=== PATIENT | male | born 1940 | race Two or more races ===

== ENCOUNTER 2017-12-12 13:00 | Inpatient (IN) | payer OTHER ==
[~2017-12-12] VITALS: Ht 170.2 cm; Wt 83.9 kg
[2017-12-12] MEDS ORDERED: SODIUM CHLORIDE 0.9% 1,000 ML IV ONE (13:53)
[2017-12-12 14:37] LABS: MEAN CORPUSCULAR HEMOGLOBIN 15.2 pg (28.0-32.0); MEAN CORPUSCULAR VOLUME 55.3 fL (80.0-94.0); MEAN PLATELET VOLUME 8.3 fl (7.4-10.4); PLATELET 418 x1000/uL (130-400); RED CELL DISTRIBUTION WIDTH 21.7 % (11.6-14.6)
[2017-12-12 14:39] LABS: INR 1.1; PROTHROMBIN TIME 10.8 sec (9.1-11.1)
[2017-12-12 14:43] LABS: BASOPHILS % 0.8 % (0.0-2.0); CHLORIDE 102 mEq/L (98-107); EOSINOPHILS % 5.3 % (0.0-5.0); HEMATOCRIT. 25.4 % (42.0-52.0); LYMPHOCYTES % 24.1 % (20.0-50.0); NEUTROPHILS % 61.8 % (40.0-76.0)
[2017-12-12 15:25] LABS: PLATELET ESTIMATE NORMAL
[2017-12-12 16:19] LABS: CLARITY URINE CLEAR (CLEAR); COLOR URINE YELLOW (YELLOW); KETONES URINE NEGATIVE (NEGATIVE); LEUKOCYTE ESTERASE URINE NEGATIVE (NEGATIVE); NITRITE URINE NEGATIVE (NEGATIVE); OCCULT BLOOD URINE NEGATIVE (NEGATIVE); PH URINE 5.5 (4.5-8.0); PROTEIN URINE NEGATIVE (NEGATIVE); UROBILINOGEN URINE 0.2 E.U./dL (0.2-1.0)
[2017-12-12] MEDS ORDERED: ACETAMINOPHEN 325MG TABLET PO PRN (18:00)
[2017-12-12] MEDS ORDERED: ONDANSETRON HCL 4MG/2ML INJ IV PRN (18:00)
[2017-12-12] MEDS ORDERED: DEXTROSE 50% WATER 50ML SYRINGE IV PRN (18:00)
[2017-12-12 20:00] VITALS: BP 197/85
[2017-12-12 20:25] VITALS: BP 140/83
[2017-12-12 21:45] VITALS: BP 140/83
[2017-12-12] MEDS: INSULIN LISPRO 100 UNITS/ML SUBCUT SCH (22:50)
[2017-12-12] MEDS: BLOOD SUGAR DIAGNOSTIC STRIP TEST SCH (22:50)
[2017-12-12] MEDS: LEVETIRACETAM 500MG TABLET PO SCH (22:59)
[2017-12-12 23:20] LABS: *AMPHETAMINES SCREEN URINE NEGATIVE (NEGATIVE); *BARBITURATES SCREEN URINE NEGATIVE (NEGATIVE); *BENZODIAZEPINES SCREEN URINE NEGATIVE (NEGATIVE); *COCAINE SCREEN URINE NEGATIVE (NEGATIVE); METHADONE URINE SCREEN NEGATIVE (NEGATIVE)
[2017-12-12 23:21] LABS: CANNABINOID URINE SCREEN NEGATIVE (NEGATIVE); OPIATES URINE SCREEN NEGATIVE (NEGATIVE); PHENCYCLIDINE URINE SCREEN NEGATIVE (NEGATIVE)
[2017-12-13] VITALS (11 sets, daily range): BP systolic 136–175; BP diastolic 72–91
[2017-12-13] MEDS: CLONIDINE 0.1MG TABLET PO PRN ×2 (01:01→20:24)
[2017-12-13] MEDS: BLOOD SUGAR DIAGNOSTIC STRIP TEST SCH ×4 (06:20→20:24)
[2017-12-13] MEDS: INSULIN LISPRO 100 UNITS/ML SUBCUT SCH ×4 (06:21→20:24)
[2017-12-13 07:27] LABS: HEMATOCRIT 28.2 % (42.0-52.0); HEMOGLOBIN 8.6 g/dL (14.0-18.0); MEAN CORPUSCULAR HEMOGLOBIN 18.3 pg (28.0-32.0); MEAN CORPUSCULAR VOLUME 60.3 fL (80.0-94.0); PLATELET 346 x1000/uL (130-400); RED BLOOD CELL COUNT 4.68 mill/uL (4.7-6.1); RED CELL DISTRIBUTION WIDTH 29.8 % (11.6-14.6)
[2017-12-13 07:40] LABS: CHLORIDE 106 mEq/L (98-107)
[2017-12-13] MEDS: LEVETIRACETAM 500MG TABLET PO SCH ×2 (09:24→20:24)
[2017-12-13] MEDS: FLUDROCORTISONE ACETATE 0.1MG TABLET PO SCH (09:24)
[2017-12-13 17:42] LABS: VITAMIN B12 SERUM 168 pg/mL (211-911)
[2017-12-14] VITALS: BP_SYST 143; BP_SYST 161; BP_SYST 171; BP_DIAS 72; BP_DIAS 82; BP_DIAS 92
[2017-12-14 04:00] VITALS: BP 115/63
[2017-12-14] MEDS: BLOOD SUGAR DIAGNOSTIC STRIP TEST SCH ×4 (05:46→20:20)
[2017-12-14] MEDS: INSULIN LISPRO 100 UNITS/ML SUBCUT SCH ×3 (05:47→20:21)
[2017-12-14 07:54] LABS: HEMATOCRIT 30.5 % (42.0-52.0); HEMOGLOBIN 9.1 g/dL (14.0-18.0); MEAN CORPUSCULAR HEMOGLOBIN 18.1 pg (28.0-32.0); MEAN CORPUSCULAR VOLUME 60.7 fL (80.0-94.0); PLATELET 371 x1000/uL (130-400); RED BLOOD CELL COUNT 5.03 mill/uL (4.7-6.1)
[2017-12-14 08:00] VITALS: BP 147/69
[2017-12-14 09:38] LABS: CHLORIDE 104 mEq/L (98-107)
[2017-12-14] MEDS: FLUDROCORTISONE ACETATE 0.1MG TABLET PO SCH (10:28)
[2017-12-14] MEDS: LEVETIRACETAM 500MG TABLET PO SCH ×2 (10:29→20:16)
[2017-12-14] MEDS: CLONIDINE 0.1MG TABLET PO PRN (10:29)
[2017-12-14 19:03] LABS: TOTAL IRON BINDING CAPACITY 462 ug/dL (250-450)
[2017-12-14 20:00] VITALS: BP_SYST 157; BP_SYST 183; BP_SYST 188; BP_DIAS 65; BP_DIAS 83; BP_DIAS 84
[2017-12-14 20:30] VITALS: BP 150/68
[2017-12-15] VITALS (7 sets, daily range): BP systolic 130–152; BP diastolic 65–88
[2017-12-15] MEDS: BLOOD SUGAR DIAGNOSTIC STRIP TEST SCH (05:55)
[2017-12-15] MEDS: INSULIN LISPRO 100 UNITS/ML SUBCUT SCH ×2 (05:57→11:39)
[2017-12-15 07:04] LABS: BASOPHILS % 0.9 % (0.0-2.0); EOSINOPHILS % 8.7 % (0.0-5.0); HEMATOCRIT. 29.5 % (42.0-52.0); HEMOGLOBIN. 8.8 g/dL (14.0-18.0); LYMPHOCYTES % 25.6 % (20.0-50.0); MEAN CORPUSCULAR HEMOGLOBIN 17.9 pg (28.0-32.0); MEAN CORPUSCULAR VOLUME 60.3 fL (80.0-94.0); MEAN PLATELET VOLUME 8.4 fl (7.4-10.4); MONOCYTES % 10.5 % (2.0-8.0); NEUTROPHILS % 54.3 % (40.0-76.0); PLATELET 354 x1000/uL (130-400); RED CELL DISTRIBUTION WIDTH 30.4 % (11.6-14.6)
[2017-12-15] MEDS: LEVETIRACETAM 500MG TABLET PO SCH (09:17)
[2017-12-15] MEDS: FLUDROCORTISONE ACETATE 0.1MG TABLET PO SCH (09:17)
[2017-12-15 09:40] LABS: CHLORIDE 103 mEq/L (98-107)
== END 2017-12-15 15:30 | disposition home or self-care (01) | DRG 48 ==
LOC: ER 13:48 → 5WST 14:57 → EDBEDREQTM 14:59 → EDBEDREQ 14:59 → EDBEDREQTM 15:00 → ENRESERV 19:16
PROVIDERS: ADMIT Internal Medicine; ATTEND Internal Medicine
PROC: 30233N1 Transfusion of Nonautologous Red Blood Cells into Peripheral Vein, Percutaneous Approach (ICD-10-PCS; principal; 2017-12-12)
DX: G90.8 Other disorders of autonomic nervous system (principal); E11.65 Type 2 diabetes mellitus with hyperglycemia; D64.9 Anemia, unspecified; E78.5 Hyperlipidemia, unspecified; F44.5 Conversion disorder with seizures or convulsions; I10 Essential (primary) hypertension; F17.200 Nicotine dependence, unspecified, uncomplicated; J44.9 Chronic obstructive pulmonary disease, unspecified; R32 Unspecified urinary incontinence; W19.XXXA Unspecified fall, initial encounter; Z86.73 Personal history of transient ischemic attack (TIA), and cerebral infarction without residual deficits; I25.2 Old myocardial infarction; Y92.89 Other specified places as the place of occurrence of the external cause; Y93.89 Activity, other specified; Y99.8 Other external cause status
CPT/HCPCS: 36415; 70551; 71045; 80048; 80061; 80305; 82270; 82607; 82962; 83036; 83540; 83550; 83880; 84443; 84484; 85027; 86850; 86900; 86920; 93005; 93306; 96360; 96361; 97162; 99291; J7030; P9016